=== PATIENT | female | born 1975 | race Caucasian/White ===

== ENCOUNTER 2022-11-21 08:05 | Day surgery (SDC) | payer BC ==
[2022-11-16 11:03] LABS: BASOPHILS % (AUTO) 0.5 % (0-1); EOSINOPHILS # (AUTO) 0.1 X10'3 (0-0.9); EOSINOPHILS % (AUTO) 0.9 % (0-6); LYMPHOCYTES % (AUTO) 29.1 % (21-51); MEAN CORPUSCULAR HEMOGLOBIN 31.2 PG (27.0-31.0); MEAN CORPUSCULAR HGB CONC 34.5 g/dL (33.0-36.5); MEAN CORPUSCULAR VOLUME 90.6 FL (78-98); MEAN PLATELET VOLUME 7.7 FL (7.4-10.4); MONOCYTES # (AUTO) 0.4 X10'3 (0-0.9); MONOCYTES % (AUTO) 5.4 % (2-12); NEUTROPHILS # (AUTO) 4.4 X10'3 (1.8-7.7); NEUTROPHILS % (AUTO) 64.1 % (42-75); PRE OP HEMATOCRIT 43.2 % (35.0-45.0); PRE OP HEMOGLOBIN 14.9 g/dL (12.0-16.0); PRE OP PLATELET COUNT 269 X10'3 (140-440); RED BLOOD COUNT 4.77 X10'6 (4.20-5.60)
[2022-11-16 11:19] LABS: PRE OP INR 1.1 INR; PRE OP PROTIME 11.4 SECONDS (9.0-12.0)
[2022-11-16 11:25] LABS: ALBUMIN 4.2 G/DL (3.4-5.0); ALBUMIN/GLOBULIN RATIO 1.3 (1.1-1.5); ALKALINE PHOSPHATASE 67 IU/L (46-116); BLOOD UREA NITROGEN 15 MG/DL (7-18); BUN/CREATININE RATIO 20.5 (10.0-20.0); CALCIUM 8.8 MG/DL (8.5-10.1); CHLORIDE 105 MMOL/L (99-107); CREATININE 0.73 MG/DL (0.40-0.90); PRE OP ALT 17 U/L (30-65); PRE OP ANION GAP 6 (8-16); PRE OP AST 19 U/L (10-37); PRE OP BILIRUB, TOTAL 0.6 MG/DL (0.0-1.0); PRE OP GLUCOSE 97 MG/DL (70-104); PRE OP POTASSIUM 3.9 MMOL/L (3.4-5.1); PRE OP SODIUM 140 MMOL/L (135-145); TOTAL CARBON DIOXIDE 28.7 MMOL/L (24-32); TOTAL PROTEIN 7.4 G/DL (6.4-8.2); eGFR 85 ML/MIN
[2022-11-21] VITALS (9 sets, daily range): BP systolic 124–146; BP diastolic 68–89
[~2022-11-21] VITALS: Ht 162.6 cm; Wt 70.3 kg
[~2022-11-21 08:05] MED LIST: NO HOME MEDS; cefazolin 2gm/D5W 100mL 100 ML IV ONE; famotidine 20mg tablet PO ONE; ringers solution, lacted 1,000 ML IV SCH
[2022-11-21] MEDS ORDERED: ondansetron/PF 4mg/2ml inj IV PRN (09:15)
[2022-11-21] MEDS ORDERED: ringers solution, lacted 1,000 ML IV SCH (09:15)
[2022-11-21] MEDS ORDERED: morphine 4 MG/ML inj SYRINge IV PRN (09:15)
[2022-11-21] MEDS ORDERED: morphine 2 MG/ML inj. syringe IV PRN (09:15)
[2022-11-21] MEDS ORDERED: labetalol 20mg/4ml (5mg/ml) syringe IV PRN (09:15)
[2022-11-21] MEDS ORDERED: hydrALAZINE 20mg/ml inj. IV PRN (09:15)
[2022-11-21] MEDS ORDERED: fentaNYL/PF 50MCG/1 ML 2ML syringe IV PRN ×2 (09:15)
[2022-11-21] MEDS ORDERED: BUPIVAcaine/PF 5 mg/ml 10ml ONE (11:43)
[2022-11-21] MEDS ORDERED: midazolam 1 mg/ML 2ml injection ONE (12:00)
[2022-11-21] MEDS ORDERED: propofol inj 20 ML IV ONE (12:00)
[2022-11-21] MEDS ORDERED: fentaNYL/PF 50MCG/1 ML 2ML syringe ONE (12:00)
[2022-11-21] MEDS ORDERED: LIDOcaine 1%/PF 5ML 10 MG/ML VIAL ONE (12:00)
[2022-11-21] MEDS ORDERED: ondansetron/PF 4mg/2ml inj ONE (12:01)
[2022-11-21] MEDS ORDERED: ROPIVAcaine 0.5% (5mg/ml) 30ml vial ONE (12:07)
[2022-11-21] MEDS ORDERED: dexamethasone sod phosphate 4mg/ml inj. ONE (12:25)
[2022-11-21] MEDS ORDERED: ROPIVAcaine 0.5% (5mg/ml) 30ml vial IJ ONE (12:34)
--- NOTE | 2022-11-21 14:15 | NUR ---
PATIENT MEETS DISCHARGE CRITERIA. WENT OVER DISCHARGE INSTRUCTIONS WITH PATIENT AND ANSWERED ALL HER QUESTIONS. WHEELED HER DOWN TO THE LOBBY AND WAITED FOR HER . Addendum: 11/21/22 at 1511 by Sarah Degroot RN Amended: Links added.
== END 2022-11-21 14:15 | disposition home or self-care (01) ==
LOC: PAS 08:05
PROVIDERS: ATTEND Surgery
DX: R89.7 Abnormal histological findings in specimens from other organs, systems and tissues (principal); D24.1 Benign neoplasm of right breast; N60.11 Diffuse cystic mastopathy of right breast; Z87.891 Personal history of nicotine dependence; Z86.73 Personal history of transient ischemic attack (TIA), and cerebral infarction without residual deficits; Z98.890 Other specified postprocedural states; Z72.89 Other problems related to lifestyle; Z79.899 Other long term (current) drug therapy; Z79.01 Long term (current) use of anticoagulants
CPT/HCPCS: 19301; 36415; 71045; 80053; 82948; 85025; 85610; 85730; 93005; J0690; J1100; J2250; J2405; J2704; J2795; J3010; J3490; J7030; J7120; Z7506; Z7508; Z7512; A4215; A4618; A6449; A7000